=== PATIENT | female | born 1940 | race Caucasian/White ===

== ENCOUNTER 2017-11-13 12:10 | Inpatient (IN) | payer MEDICARE, BC ==
[~2017-11-13] VITALS: Ht 157.5 cm; Wt 49.9 kg
[2017-11-13] MEDS ORDERED: LEVOTHYROXINE PO (12:36)
[2017-11-13] MEDS ORDERED: SITA1TAB2 PO (12:36)
[2017-11-13] MEDS ORDERED: LEVO500T2 PO (12:36)
[2017-11-13] MEDS ORDERED: CEFTRIAXONE 1 G in IV DEXTROSE 5% 50 ML IV ONE (13:40)
[2017-11-13] MEDS ORDERED: methylPREDNISolone SOD SUCC 125 MG/2 ML VIAL IV ONE (13:40)
[2017-11-13 13:44] LABS: BASOPHILS # (AUTO) 0.1 K/uL (0.0-8.0); BASOPHILS % (AUTO) 0.7 % (0.0-2.0); EOSINOPHILS % (AUTO) 0.3 % (0.0-7.0); HEMATOCRIT 41.7 % (31.2-41.9); HEMOGLOBIN 14.3 g/dL (10.9-14.3); LYMPHOCYTES # (AUTO) 2.2 K/uL (20.0-40.0); LYMPHOCYTES % (AUTO) 12.6 % (20.5-51.5); MEAN CORPUSCULAR HEMOGLOBIN 30.7 uug (24.7-32.8); MEAN CORPUSCULAR HGB CONC 34 g/dL (32.3-35.6); MEAN CORPUSCULAR VOLUME 89.5 fL (75.5-95.3); MONOCYTES % (AUTO) 5.8 % (0.0-11.0); NEUTROPHILS % (AUTO) 80.6 % (38.5-71.5); PLATELET COUNT (AUTO) 547 K/uL (179-408); RED BLOOD CELL COUNT(AUTO) 4.66 MIL/uL (3.63-4.92); WHITE BLOOD COUNT (AUTO) 17.4 K/uL (3.8-11.8)
[2017-11-13] MEDS ORDERED: ALBUTEROL SULFATE 2.5 MG/ 0.5 ML NEBU NEB ONE (13:45)
[2017-11-13 13:49] LABS: CARBON DIOXIDE 28 mmol/L (21-32); CHLORIDE 94 mmol/L (98-107); CREATININE 0.7 mg/dL (0.6-1.3); POTASSIUM 3.5 mmol/L (3.5-5.1); UREA NITROGEN, BLOOD 11 mg/dL (7-18)
[2017-11-13 13:51] LABS: GLUCOSE 309 mg/dL (74-106)
[2017-11-13 13:56] LABS: ALANINE AMINOTRANSFERASE 17 U/L (14-59); ALKALINE PHOSPHATASE 78 U/L (50-136); ASPARTATE AMINOTRANSFERASE 13 U/L (15-37); BILIRUBIN,TOTAL 0.4 mg/dL (0.2-1.0); CREATINE KINASE, TOTAL 73 U/L (26-192); TOTAL PROTEIN, SERUM 7.7 g/dL (6.4-8.2)
--- NOTE | 2017-11-13 13:59 | NUR ---
Emergency Management Coordinator assumes care. Neb treatment in progress, pending admission at this time
--- NOTE | 2017-11-13 14:00 | NUR ---
[place] in [facility] - 11/13/17 at 1523 by SCARLETT BIPAP on, patient is tolerating well, pending ROSANNA bed at this time
[2017-11-13] MEDS ORDERED: ALBUTEROL SULFATE 2.5 MG/3 ML NEBU ONE (14:10)
[2017-11-13] MEDS ORDERED: methylPREDNISolone SOD SUCC 125 MG/2 ML VIAL ONE (14:24)
[2017-11-13] MEDS ORDERED: CEFTRIAXONE 1 G VIAL ONE (14:24)
--- NOTE | 2017-11-13 16:40 | NUR ---
Room 208 is finally clean per EVS staff, patient will go to 2nd floor as soon as possible. No acute changes in patient's condition seen
--- NOTE | 2017-11-13 16:45 | NUR ---
RECEIVED CLIENT FROM THE ER VIA A WHEELCHAIR. CLIENT WAS IN BED IN A HIGH FOWLERS POSITION, SHE IS ALERT, AWAKE AND ORIENTED TIMES 4. NON-PRODUCTIVE COUGH NOTED. DR AWARE OF HER ARRIVAL. CLIENT STATES NO PAIN, NO DISCOMFORT OR DISTRESS. LABORED BREATHING NOTED. CLIENT WAS DIAGNOSED WITH PNEUMONIA. VS STABLE
[2017-11-13 17:15] VITALS: BP 110/63
--- NOTE | 2017-11-13 19:49 | NUR ---
CLIENT IS ALERT AND ORIENTED TIMES 4. JUSTYN HER BROTHER CALLED FOR UPDATES ON HER CONDITION, CLIENT IS AWARE. CLIENT HAD A LEACH CELL OPERATOR BY BEDSIDE. CLIENT WAS TRYING TO WALK OUT FOR A SMOKE, CLIENT WAS ADVISED THAT THIS IS A NON-SMOKING FACILITY. SECURITY WAS CALLED TO KEEP AND EYE IF SHE WALKED OUT THE HOSPITAL. CLIENT HAD A LATE DINNER. NO APPARENT SIGNS AND SYMPTOMS OF PAIN, DISTRESS OR DISCOMFORT
[2017-11-13 20:00] VITALS: BP 108/57
[2017-11-13] MEDS ORDERED: ALBUTEROL SULFATE 2.5 MG/3 ML NEBU NEB PRN (20:00)
[2017-11-13] MEDS: NICOTINE 7 MG/24HR PATCH TD SCH (21:11)
[2017-11-14 00:39] VITALS: BP 131/62
[2017-11-14 04:00] VITALS: BP 118/67
--- NOTE | 2017-11-14 07:21 | NUR ---
RECEIVED CLIENT SLEEPING IN BED. HOB IN A SEMI FOWLERS POSITION. NO APPARENT SIGNS AND SYMPTOMS OF SOB, PAIN, DISTRESS OR DISCOMFORT
[2017-11-14] MEDS: NICOTINE 7 MG/24HR PATCH TD SCH (08:42)
[2017-11-14] MEDS ORDERED: LEVO125T8 PO (10:07)
[2017-11-14] MEDS ORDERED: MISCELLANEOUS MED XX PRN (10:15)
[2017-11-14] MEDS: LEVOFLOXACIN 500 MG TABLET PO SCH (10:50)
[2017-11-14] MEDS: LEVOTHYROXINE SODIUM 125 MCG TABLET PO SCH (10:50)
[2017-11-14 11:18] VITALS: BP 101/55
--- NOTE | 2017-11-14 11:25 | NUR ---
TELEMETRY HAS BEEN D/C
[2017-11-14] MEDS: METFORMIN HCL 500 MG TABLET PO SCH ×2 (12:00→17:05)
[2017-11-14] MEDS ORDERED: ALBUTEROL SULFATE 1.25 MG/3 ML NEBU NEB PRN (12:15)
[2017-11-14] MEDS ORDERED: IPRATROPIUM BROMIDE 0.5 MG/2.5 ML NEBU NEB PRN (12:15)
[2017-11-14] MEDS ORDERED: CEFTRIAXONE 1 G VIAL IM SCH (12:15)
[2017-11-14] MEDS: CEFTRIAXONE 1 G in IV DEXTROSE 5% 50 ML IV SCH (13:14)
[2017-11-14 15:28] VITALS: BP 108/53
--- NOTE | 2017-11-14 18:32 | NUR ---
Client is in bed awake, alert and oriented times three, with the HOB at a high fowlers position. Client states no pain, no discomfort, no distress and no SOB. The client was offered a breathing treatment but she refused. Client has been compliant with all nursing care and medications that have been provided for her throughout the day. Client states that the Nicotine patch has been helpful and as of right now has no need to go outside and smoke, unlike yesterday.
--- NOTE | 2017-11-14 19:40 | NUR ---
PATIENT SLEEPING INTERMITTENTLY EASILY AROUSING TO VERBAL COMMANDS. NO SOB NOTED. WILL CONTINUE TO MONITOR.NO DISCOMFORT NOTED. SAFETY MEASURES OBSERVED
[2017-11-14 20:00] VITALS: BP 99/47
[2017-11-15 06:01] VITALS: BP 106/59
[2017-11-15] MEDS: LEVOTHYROXINE SODIUM 125 MCG TABLET PO SCH (06:09)
--- NOTE | 2017-11-15 07:16 | NUR ---
PATIENT IN STABLE CONDITION. NO DISTRESS NOTED.PATINET ON NICOTINE PATCH.NO DEMANDS TO SMOKE
--- NOTE | 2017-11-15 08:00 | NUR ---
AWAKE COOPERATE WELL NO SOB OR PAIN COUGHING DRY ON FALL /ASPIRATION PRECAUTION BED ALARM ON AND CALL PALOMARES IN REACH
[2017-11-15] MEDS: LEVOFLOXACIN 500 MG TABLET PO SCH (08:59)
[2017-11-15] MEDS: NICOTINE 7 MG/24HR PATCH TD SCH (08:59)
[2017-11-15] MEDS: METFORMIN HCL 500 MG TABLET PO SCH ×2 (08:59→17:37)
[2017-11-15 11:53] VITALS: BP 129/67
--- NOTE | 2017-11-15 12:00 | NUR ---
DR CASTORENA SEEN PATIENT AND PT CONDITION INFORM NEW ORDER IN CHART
[2017-11-15] MEDS: CEFTRIAXONE 1 G in IV DEXTROSE 5% 50 ML IV SCH (12:13)
--- NOTE | 2017-11-15 12:30 | NUR ---
URINE UA AND CS SENT TO LAB ORDER EAT LUNCH MOD AMT NO PAIN
[2017-11-15] MEDS ORDERED: DEXTROSE 50% 50 ML DISP.SYRIN IV PRN (12:45)
[2017-11-15 15:11] VITALS: BP 115/62
[2017-11-15] MEDS: BLOOD SUGAR DIAGNOSTIC 1 EACH STRIP VI SCH ×2 (17:37→20:32)
[2017-11-15] MEDS: INSULIN REGULAR, HUMAN 300 UNIT/3 ML VIAL SQ PRN ×2 (17:39→20:36)
--- NOTE | 2017-11-15 18:00 | NUR ---
STABLE HEMODYNAMIC STATUS ,PAIN UNDER CONTROL NO ACUTE DISTRESS SAFETY MEASURE PROVIDED BED ALARM ON AND CALL LIGHT IN REACH
[2017-11-15 20:00] VITALS: BP 115/59
[2017-11-15] MEDS ORDERED: IOHEXOL 300MG/ML 100 ML INFUS..BTL ONE (20:19)
[2017-11-15] MEDS ORDERED: NORMAL SALINE FLUSH 10 ML DISP.SYRIN ONE (20:19)
[2017-11-15] MEDS ORDERED: IV NORMAL SALINE 250 ML IV ONE (20:19)
[2017-11-15] MEDS: LACTOBACILLUS RHAMNOSUS GG 1 EACH CAPSULE PO SCH (20:30)
[2017-11-15] MEDS: INSULIN DETEMIR 300 UNIT/3 ML CARTRIDGE SQ SCH (20:33)
[2017-11-15] MEDS ORDERED: INSULIN GLARGINE,HUM 300 UNITS/3 ML CARTRIDGE SQ SCH (21:00)
--- NOTE | 2017-11-16 00:38 | NUR ---
patient sleeping no respiratory distress, few cough ,o2 sat93% in room air,ambulatory with stand by assistance,needs attended.
[2017-11-16 05:56] VITALS: BP 96/50
[2017-11-16] MEDS: LEVOTHYROXINE SODIUM 125 MCG TABLET PO SCH (06:28)
[2017-11-16] MEDS: BLOOD SUGAR DIAGNOSTIC 1 EACH STRIP VI SCH ×4 (06:28→20:34)
--- NOTE | 2017-11-16 08:00 | NUR ---
AWAKE ALERT COOPERATE WELL NO SOB OR PAIN ON FALL PRECAUTION CALL PALOMARES IN REACH
[2017-11-16 08:07] LABS: BASOPHILS # (AUTO) 0.1 K/uL (0.0-8.0); BASOPHILS % (AUTO) 1.2 % (0.0-2.0); EOSINOPHILS # (AUTO) 0.1 K/uL (0.0-0.7); EOSINOPHILS % (AUTO) 0.5 % (0.0-7.0); HEMATOCRIT 40.8 % (31.2-41.9); HEMOGLOBIN 13.9 g/dL (10.9-14.3); LYMPHOCYTES # (AUTO) 2.6 K/uL (20.0-40.0); LYMPHOCYTES % (AUTO) 24.1 % (20.5-51.5); MEAN CORPUSCULAR HEMOGLOBIN 30.5 uug (24.7-32.8); MEAN CORPUSCULAR HGB CONC 34 g/dL (32.3-35.6); MEAN CORPUSCULAR VOLUME 89.4 fL (75.5-95.3); MONOCYTES # (AUTO) 0.7 K/uL (2.0-10.0); MONOCYTES % (AUTO) 6.3 % (0.0-11.0); NEUTROPHILS # (AUTO) 7.4 K/uL (1.8-8.9); NEUTROPHILS % (AUTO) 67.9 % (38.5-71.5); PLATELET COUNT (AUTO) 601 K/uL (179-408); RED BLOOD CELL COUNT(AUTO) 4.56 MIL/uL (3.63-4.92); WHITE BLOOD COUNT (AUTO) 10.8 K/uL (3.8-11.8)
[2017-11-16] MEDS: LACTOBACILLUS RHAMNOSUS GG 1 EACH CAPSULE PO SCH ×2 (08:12→20:35)
[2017-11-16] MEDS: NICOTINE 7 MG/24HR PATCH TD SCH (08:12)
[2017-11-16] MEDS: METFORMIN HCL 500 MG TABLET PO SCH ×2 (08:12→16:57)
[2017-11-16] MEDS: LEVOFLOXACIN 500 MG TABLET PO SCH (08:12)
[2017-11-16] MEDS: INSULIN REGULAR, HUMAN 300 UNIT/3 ML VIAL SQ PRN ×4 (08:14→20:40)
[2017-11-16 08:32] LABS: ALANINE AMINOTRANSFERASE 15 U/L (14-59); ALKALINE PHOSPHATASE 63 U/L (50-136); ASPARTATE AMINOTRANSFERASE 13 U/L (15-37); BILIRUBIN,TOTAL 0.3 mg/dL (0.2-1.0); CARBON DIOXIDE 32 mmol/L (21-32); CHLORIDE 96 mmol/L (98-107); CREATININE 0.7 mg/dL (0.6-1.3); GLUCOSE 203 mg/dL (74-106); PHOSPHOROUS 3.3 mg/dL (2.5-4.9); POTASSIUM 3.4 mmol/L (3.5-5.1); TOTAL PROTEIN, SERUM 7.1 g/dL (6.4-8.2); UREA NITROGEN, BLOOD 14 mg/dL (7-18)
[2017-11-16 08:37] LABS: MAGNESIUM 0.9 mg/dL (1.8-2.4)
--- NOTE | 2017-11-16 08:45 | NUR ---
DR CARLISLE WAS NOTIFY OF MG WAS 0.9 AND ORDER IN CHART
[2017-11-16] MEDS: MAGNESIUM SULFATE/D5W 100 ML IV SCH ×4 (10:10→16:03)
[2017-11-16 11:08] VITALS: BP 100/57
[2017-11-16] MEDS: CEFTRIAXONE 1 G in IV DEXTROSE 5% 50 ML IV SCH (14:04)
[2017-11-16 15:17] VITALS: BP_SYST 100; BP_SYST 114; BP_DIAS 57; BP_DIAS 61
[2017-11-16] MEDS ORDERED: POTASSIUM CHLORIDE 20 MEQ TAB.PRT.SR PO ONE (15:45)
--- NOTE | 2017-11-16 17:30 | NUR ---
STABLE CONDITION NO ACUTE DISTRESS PAIN UNDER CONTROL SAFETY MEASURE PROVIDED CALL LIGHT IN REACH
[2017-11-16 19:00] VITALS: BP 111/66
[2017-11-16] MEDS: INSULIN DETEMIR 300 UNIT/3 ML CARTRIDGE SQ SCH (20:37)
[2017-11-17 04:00] VITALS: BP 108/54
--- NOTE | 2017-11-17 05:01 | NUR ---
PATIENT SLEEP COMFORTABLY THROUGH OUT THE NIGHT, NO ACUTE CHANGE/SHIFT, VITAL SIGNS REMAIN STABLE, AMBULATORY WELL.DENIES PAIN/DISCOMFORT.
[2017-11-17] MEDS: LEVOTHYROXINE SODIUM 125 MCG TABLET PO SCH (06:03)
[2017-11-17] MEDS: BLOOD SUGAR DIAGNOSTIC 1 EACH STRIP VI SCH ×4 (06:23→21:15)
--- NOTE | 2017-11-17 08:00 | NUR ---
AWAKE COOPERATE NO PAIN OR SOB ON FALL PRECAUTION CALL LIGHT IN REACH AND INSTRUCTION TO CALL WHEN NEEDED
[2017-11-17] MEDS: METFORMIN HCL 500 MG TABLET PO SCH ×2 (08:03→17:46)
[2017-11-17] MEDS: NICOTINE 7 MG/24HR PATCH TD SCH (08:04)
[2017-11-17] MEDS: LACTOBACILLUS RHAMNOSUS GG 1 EACH CAPSULE PO SCH ×2 (08:04→21:11)
[2017-11-17] MEDS: INSULIN REGULAR, HUMAN 300 UNIT/3 ML VIAL SQ PRN ×3 (08:07→21:19)
[2017-11-17] MEDS: LEVOFLOXACIN 500 MG TABLET PO SCH (09:28)
[2017-11-17 11:27] VITALS: BP 109/60
--- NOTE | 2017-11-17 12:00 | NUR ---
[employer]AT [employer] FAMILY EMPLOYEE RELATIONS ADVISOR AT BEDSIDE DTR RAFFAELE SEE PATIENT AND ORDER LAB IN AM
[2017-11-17] MEDS: CEFTRIAXONE 1 G in IV DEXTROSE 5% 50 ML IV SCH (13:00)
[2017-11-17 15:53] VITALS: BP 117/64
--- NOTE | 2017-11-17 18:00 | NUR ---
HEMODYNAMIC STATUS STABLE NO ACUTE DISTRESS SAFETY MEASURE PROVIDED CALL LIGHT IN REACH AND INSTRUCTION TO CALL WHEN NEEDED
--- NOTE | 2017-11-17 19:10 | NUR ---
Received patient awake. Denies any pain/discomforts at this time. Will continue to monitor.
[2017-11-17 20:44] VITALS: BP 96/48
[2017-11-17] MEDS: INSULIN DETEMIR 300 UNIT/3 ML CARTRIDGE SQ SCH (21:18)
--- NOTE | 2017-11-18 05:19 | NUR ---
Slept well. Patient requested not to be bothered from 2200 till 0800 to be able to catch up with missing hours of sleep. RESOURCE FORESTER and Charge nurse made aware. No further complaint presented. Continue care as planned.
[2017-11-18] MEDS: LEVOTHYROXINE SODIUM 125 MCG TABLET PO SCH (06:17)
[2017-11-18] MEDS: BLOOD SUGAR DIAGNOSTIC 1 EACH STRIP VI SCH ×2 (06:17→11:58)
[2017-11-18 06:31] VITALS: BP 122/74
--- NOTE | 2017-11-18 07:35 | NUR ---
Received report from night, there is a no disturb sign on her door, it was endorsed that the client does not want to be disturbed until 0800am. Respecting client's wishes at this time
[2017-11-18] MEDS ORDERED: LACT1CAP57 PO (07:42)
[2017-11-18] MEDS ORDERED: METF500T4 PO (07:42)
[2017-11-18] MEDS: LACTOBACILLUS RHAMNOSUS GG 1 EACH CAPSULE PO SCH (08:15)
[2017-11-18] MEDS: METFORMIN HCL 500 MG TABLET PO SCH (08:15)
[2017-11-18] MEDS: NICOTINE 7 MG/24HR PATCH TD SCH (08:15)
[2017-11-18] MEDS: LEVOFLOXACIN 500 MG TABLET PO SCH (08:15)
[2017-11-18] MEDS: INSULIN REGULAR, HUMAN 300 UNIT/3 ML VIAL SQ PRN ×2 (08:26→12:05)
[2017-11-18 08:32] LABS: BASOPHILS # (AUTO) 0.1 K/uL (0.0-8.0); BASOPHILS % (AUTO) 1.2 % (0.0-2.0); EOSINOPHILS # (AUTO) 0.1 K/uL (0.0-0.7); EOSINOPHILS % (AUTO) 1.2 % (0.0-7.0); HEMATOCRIT 40.8 % (31.2-41.9); HEMOGLOBIN 14.1 g/dL (10.9-14.3); LYMPHOCYTES # (AUTO) 2.9 K/uL (20.0-40.0); LYMPHOCYTES % (AUTO) 31.7 % (20.5-51.5); MEAN CORPUSCULAR HEMOGLOBIN 30.8 uug (24.7-32.8); MEAN CORPUSCULAR HGB CONC 35 g/dL (32.3-35.6); MEAN CORPUSCULAR VOLUME 88.9 fL (75.5-95.3); MONOCYTES # (AUTO) 0.7 K/uL (2.0-10.0); MONOCYTES % (AUTO) 7.5 % (0.0-11.0); NEUTROPHILS # (AUTO) 5.3 K/uL (1.8-8.9); NEUTROPHILS % (AUTO) 58.4 % (38.5-71.5); PLATELET COUNT (AUTO) 587 K/uL (179-408); RED BLOOD CELL COUNT(AUTO) 4.58 MIL/uL (3.63-4.92); WHITE BLOOD COUNT (AUTO) 9.1 K/uL (3.8-11.8)
[2017-11-18 09:01] LABS: ALANINE AMINOTRANSFERASE 18 U/L (14-59); ALKALINE PHOSPHATASE 67 U/L (50-136); ASPARTATE AMINOTRANSFERASE 18 U/L (15-37); BILIRUBIN,TOTAL 0.3 mg/dL (0.2-1.0); CARBON DIOXIDE 30 mmol/L (21-32); CHLORIDE 99 mmol/L (98-107); CREATININE 0.6 mg/dL (0.6-1.3); GLUCOSE 125 mg/dL (74-106); MAGNESIUM 1.3 mg/dL (1.8-2.4); PHOSPHOROUS 3.3 mg/dL (2.5-4.9); POTASSIUM 3.9 mmol/L (3.5-5.1); TOTAL PROTEIN, SERUM 7.2 g/dL (6.4-8.2); UREA NITROGEN, BLOOD 15 mg/dL (7-18)
--- NOTE | 2017-11-18 09:20 | NUR ---
Client was able to ambulate in the hallways with the assistance of a walker and one physical therapist. Tolerated well with no apparent signs and symptoms of SOB, pain , distress or discomfort
--- NOTE | 2017-11-18 11:00 | NUR ---
Cleaned Accu-check monitor and will provided insulin according to sliding scale
[2017-11-18 11:35] VITALS: BP 122/65
[2017-11-18] MEDS: CEFTRIAXONE 1 G in IV DEXTROSE 5% 50 ML IV SCH (12:02)
--- NOTE | 2017-11-18 16:05 | NUR ---
Client is being discharge with doctor's orders and with [facility]. Client is being accompanied by caregiver and her brother. V/s stable.
== END 2017-11-18 16:10 | disposition home health service (06) | DRG 190 ==
LOC: ER 12:10 → TELE 16:24 → MED 11-14 11:00
PROVIDERS: ADMIT Internal Medicine; ATTEND Internal Medicine
DX: J44.0 Chronic obstructive pulmonary disease with (acute) lower respiratory infection (principal); J18.9 Pneumonia, unspecified organism; J44.1 Chronic obstructive pulmonary disease with (acute) exacerbation; E11.9 Type 2 diabetes mellitus without complications; F17.210 Nicotine dependence, cigarettes, uncomplicated; Z79.84 Long term (current) use of oral hypoglycemic drugs; I10 Essential (primary) hypertension; E03.9 Hypothyroidism, unspecified
CPT/HCPCS: 36415; 70030-TC; 71045; 83735; 84100; 85025; 87040; 87086; 87400; 93005; 94664; 97116; 97530; A4663; A9150; J0696; J1815; J2930; J3475; J3490; J7050; J7060; Q9967